=== PATIENT | female | born 1995 | race Two or more races ===

== ENCOUNTER → 2022-11-22 | Emergency (ER) | payer OTHER ==
[~2022-11-22] VITALS: Ht 147.3 cm; Wt 57.6 kg
[~2022-11-22] MED LIST: FOLIC ACID0.8 M1 PO; PRENA1 CHEW TA1.4 MG PO
== END | disposition left against medical advice (07) ==
LOC: ER 19:40
DX: O99.512 Diseases of the respiratory system complicating pregnancy, second trimester (principal); Z3A.23 23 weeks gestation of pregnancy; Z20.822 Contact with and (suspected) exposure to COVID-19; Z88.8 Allergy status to other drugs, medicaments and biological substances

== ENCOUNTER 2022-12-13 09:52 | Outpatient (CLI) | payer OTHER | END 2022-12-13 12:00 | disposition home or self-care (01) | LOC: PRENATAL 09:52 | PROVIDERS: ATTEND Obstetrics & Gynecology Maternal & Fetal Medicine | DX: O35.9XX0 Maternal care for (suspected) fetal abnormality and damage, unspecified, not applicable or unspecified (principal); O35.3XX0 Maternal care for (suspected) damage to fetus from viral disease in mother, not applicable or unspecified; Z3A.25 25 weeks gestation of pregnancy ==

== ENCOUNTER 2023-03-26 05:48 | Inpatient (IN) | payer OTHER ==
[~2023-03-26] VITALS: Ht 149.9 cm; Wt 61.2 kg
== END 2023-03-28 13:37 | disposition home or self-care (01) | DRG 807 ==
LOC: LDR 05:48 → OB/GYN 17:31
PROVIDERS: ADMIT Obstetrics & Gynecology; ATTEND Obstetrics & Gynecology
PROC: 10E0XZZ Delivery of Products of Conception, External Approach (ICD-10-PCS; principal; 2023-03-26)
PROC: 3E033VJ Introduction of Other Hormone into Peripheral Vein, Percutaneous Approach (ICD-10-PCS; 2023-03-26)
PROC: 3E0P7VZ Introduction of Hormone into Female Reproductive, Via Natural or Artificial Opening (ICD-10-PCS; 2023-03-26)
PROC: 4A1HXCZ Monitoring of Products of Conception, Cardiac Rate, External Approach (ICD-10-PCS; 2023-03-26)
DX: O80 Encounter for full-term uncomplicated delivery (principal); Z37.0 Single live birth; Z3A.39 39 weeks gestation of pregnancy; Z20.822 Contact with and (suspected) exposure to COVID-19